=== PATIENT | male | born 2000 | race Caucasian/White ===

== ENCOUNTER 2023-03-25 05:03 | Inpatient (IN) | payer OTHER, BC ==
[2023-03-25] MEDS ORDERED: fentaNYL 50 mcg/mL 1 mL Vial ONE ×4 (05:15→17:25)
[2023-03-25] MEDS ORDERED: Morphine 4 MG/ML VIAL ONE ×2 (05:18→05:22)
[2023-03-25] MEDS ORDERED: Naloxone HCl 2 mg/2 ml Syringe ONE (05:22)
[2023-03-25 05:23] LABS: #Basophils 0.1 thou/uL (0.0-0.2); #Eosinphils 0.3 thou/uL (0.0-0.7); #Monocytes 0.9 thou/uL (0.11-0.59); #Neutrophils 8.4 thou/uL (1.40-6.50); %Basophils 0.4 % (0.0-1.0); %Eosinophils 2.1 % (0.0-10.0); %Lymphocytes 30.6 % (21.0-51.0); %Monocytes 6.6 % (0.0-10.0); %Neutrophils 59.9 % (42.0-75.0); Hemoglobin 15.2 g/dL (14.0-18.0); Mean Corpuscular HGB CONC 33.8 g/dL (32.0-36.0); Mean Corpuscular Volume 88.9 fl (78.0-98.0); Mean Platelet Volume 9.5 fL (7.4-10.4); Platelet Count 245 10x3/uL (130-400); RBC Distribution Width 12.3 % (11.5-14.5); Red Blood Cell (RBC) Count 5.06 mill/uL (4.70-6.10)
[2023-03-25 05:48] LABS: Prothrombin Time 13.7 sec (12.0-14.7)
[2023-03-25 05:49] LABS: PTT 27.1 sec (22.9-36.1)
[2023-03-25] MEDS ORDERED: Lidocaine 1% w/Epinephrine 1:100K 20 ML VIAL ONE (05:52)
[2023-03-25 05:56] LABS: ALT (SGPT) 41 U/L (8-55); AST (SGOT) 54 U/L (5-34); Albumin 4.9 g/dL (3.5-5.0); Alkaline Phosphatase 60 U/L (40-110); Anion Gap 12 mmol/L (10-20); BUN (Urea Nitrogen) 17 mg/dL (8.9-20.6); Bilirubin, Total 0.4 mg/dL (0.2-1.2); Calc. Creatinine Clearance 0 mL/min (70-130); Carbon Dioxide 26 mmol/L (22-29); Chloride 104 mmol/L (98-107); Estimated GFR 87; Globulin 2.2 g/dL (2.4-3.5); Glucose 107 mg/dL (70-105); Lipase 15 U/L (8-78); Protein, Total 7.1 g/dL (6.0-8.3); Sodium 139 mmol/L (136-145)
[2023-03-25] MEDS ORDERED: Ketamine 500 mg/500 ml in NS IVPB SCH (07:15)
[2023-03-25] MEDS ORDERED: CEFAZOLIN 2 GM in Sodium Chloride 0.9% 100 ML IVPB SCH (07:30)
[2023-03-25] MEDS ORDERED: KETAMINE 100 MG/ML (5ML VIAL) SLOW IVP SCH (07:30)
[2023-03-25] MEDS ORDERED: KETAMINE 100 MG/ML (5ML VIAL) ONE (07:32)
[2023-03-25] MEDS ORDERED: traMADol HCl 50 MG TAB PO PRN (07:43)
[2023-03-25] MEDS ORDERED: Ondansetron PF 4 MG/2 ML Vial IVP PRN (07:43)
[2023-03-25] MEDS ORDERED: Dextrose 5% in Water 1,000 ML IV PRN (07:43)
[2023-03-25] MEDS ORDERED: Dextrose 50% Abboject 50 ML SYRINGE SLOW IVP PRN ×2 (07:43→09:49)
[2023-03-25] MEDS ORDERED: Glucagon 1 MG/ML KIT IM PRN ×2 (07:43→09:49)
[2023-03-25] MEDS ORDERED: Acetaminophen 325 MG TAB PO SCH (07:45)
[2023-03-25] MEDS: Acetaminophen 500 MG TAB PO SCH ×3 (09:03→21:23)
[2023-03-25] MEDS: Sodium Chloride 0.9% 1,000 ML IV SCH ×2 (09:09→17:27)
[2023-03-25] MEDS: Ketorolac Tromethamine 30 MG/ML VIAL IVP SCH ×3 (09:09→21:20)
[2023-03-25] MEDS: Famotidine/PF 20 mg/2ml Vial SLOW IVP SCH ×2 (09:10→21:26)
[2023-03-25] MEDS ORDERED: Morphine 2 MG/ML VIAL SLOW IVP PRN (09:49)
[2023-03-25] MEDS ORDERED: hydrALAZINE 20 MG/ML VIAL SLOW IVP PRN (09:49)
[2023-03-25] MEDS ORDERED: Ipratropium/Albuterol 3 ML NEB NEB PRN (09:49)
[2023-03-25] MEDS ORDERED: Iopamidol 370 76% 100 ML VIAL ONE (10:36)
[2023-03-25 11:28] VITALS: BMI 31.0
[2023-03-25] MEDS ORDERED: TETANUS, DIPHTHERIA TOX,ADULT (TDVAX) 0.5 ML VIAL IM ONE (12:00)
[2023-03-25] MEDS: Acetaminophen 325 MG TAB PO SCH ×4 (12:04→23:41)
[2023-03-25] MEDS: traMADol HCl 50 MG TAB PO SCH ×4 (12:05→23:41)
[2023-03-25] MEDS ORDERED: CEFAZOLIN 2 GM VIAL ONE (13:06)
[2023-03-25] MEDS ORDERED: Sodium Chloride 0.9% 100 ML ONE (13:07)
[2023-03-25] MEDS ORDERED: PROPOFOL 20 ML ONE (13:18)
[2023-03-25] MEDS ORDERED: Fentanyl 250 MCG/5 ML VIAL ONE (13:18)
[2023-03-25] MEDS ORDERED: Lidocaine 1% PF 5 ML VIAL ONE ×2 (13:19→13:43)
[2023-03-25] MEDS ORDERED: Rocuronium Bromide 10 MG/ML (10ML VIAL) ONE ×2 (13:19→13:43)
[2023-03-25] MEDS ORDERED: Glycopyrrolate 0.2 MG/ML 5 ML SYRINGE ONE ×2 (13:43→15:24)
[2023-03-25] MEDS ORDERED: Dexamethasone 20 MG/5 ML VIAL ONE (13:43)
[2023-03-25] MEDS ORDERED: NEOSTIGMINE 3 MG/3 ML SYR 3 MG/3 ML SYRINGE ONE ×2 (13:43→15:24)
[2023-03-25] MEDS ORDERED: Ondansetron PF 4 MG/2 ML Vial ONE ×2 (13:43→14:43)
[2023-03-25] MEDS ORDERED: PROPOFOL 200 MG/20 ML VIAL ONE (13:43)
[2023-03-25] MEDS ORDERED: Succinylcholine 200 MG/10 ml SYRINGE FS ONE ×2 (13:43→14:15)
[2023-03-25] MEDS ORDERED: Dexamethasone 4 mg/ml Vial ONE (14:43)
[2023-03-25] MEDS ORDERED: fentaNYL PF 100 MCG/2 ML SYRINGE ONE (14:48)
[2023-03-25] MEDS ORDERED: Ondansetron HCl/PF 4 MG/2 ML Vial IVP PRN (14:55)
[2023-03-25] MEDS ORDERED: Meperidine HCl/PF 25 MG/ML VIAL SLOW IVP PRN (14:55)
[2023-03-25] MEDS ORDERED: HYDROmorphone 2 MG/ML VIAL SLOW IVP PRN (14:55)
[2023-03-25] MEDS ORDERED: Promethazine HCl 25 MG/ML VIAL IM PRN (14:55)
[2023-03-25] MEDS ORDERED: FLU VACC QS2023-24(6MOS UP)/PF 60 MCG/0.5 ML SYRINGE IM ONE (15:00)
[2023-03-25] MEDS ORDERED: hydrOXYzine 10 MG/5 ML UDCUP PO PRN (18:35)
[2023-03-25] MEDS: CEFAZOLIN 2 GM in Sodium Chloride 0.9% 100 ML IVPB SCH (21:19)
[2023-03-26] MEDS: Acetaminophen 500 MG TAB PO SCH (02:04)
[2023-03-26] MEDS: Ketorolac Tromethamine 30 MG/ML VIAL IVP SCH ×4 (02:04→19:57)
[2023-03-26] MEDS: Sodium Chloride 0.9% 1,000 ML IV SCH ×3 (02:09→23:51)
[2023-03-26] MEDS: traMADol HCl 50 MG TAB PO SCH ×4 (05:07→23:40)
[2023-03-26] MEDS: Acetaminophen 325 MG TAB PO SCH ×5 (05:07→23:40)
[2023-03-26] MEDS: CEFAZOLIN 2 GM in Sodium Chloride 0.9% 100 ML IVPB SCH (05:19)
[2023-03-26 06:26] LABS: Anion Gap 11 mmol/L (10-20); BUN (Urea Nitrogen) 9 mg/dL (8.9-20.6); Calc. Creatinine Clearance 193 mL/min (70-130); Carbon Dioxide 26 mmol/L (22-29); Chloride 106 mmol/L (98-107); Estimated GFR 128; Glucose 114 mg/dL (70-105); Potassium 3.7 mmol/L (3.5-5.1); Sodium 139 mmol/L (136-145)
[2023-03-26] MEDS: Famotidine/PF 20 mg/2ml Vial SLOW IVP SCH ×2 (08:57→19:59)
[2023-03-27] MEDS: Ketorolac Tromethamine 30 MG/ML VIAL IVP SCH ×2 (02:44→08:28)
[2023-03-27] MEDS: traMADol HCl 50 MG TAB PO SCH ×3 (05:39→17:05)
[2023-03-27] MEDS: Acetaminophen 325 MG TAB PO SCH ×3 (05:39→17:04)
[2023-03-27] MEDS: Sodium Chloride 0.9% 1,000 ML IV SCH (07:32)
[2023-03-27] MEDS: Famotidine/PF 20 mg/2ml Vial SLOW IVP SCH (08:28)
[2023-03-27] MEDS ORDERED: Polyethylene Glycol 3350 17 GM Packet PO SCH (09:00)
[2023-03-27] MEDS ORDERED: Senokot 8.6 MG TAB PO SCH (09:00)
[2023-03-27] MEDS ORDERED: Aspirin 81 mg Enteric Coated Tablet PO SCH (09:00)
[2023-03-27] MEDS: Gabapentin 300 MG CAP PO SCH ×2 (12:31→16:04)
[2023-03-27] MEDS ORDERED: Chlorhexidine Gluconate 15 ML UDCUP SSP SCH (15:15)
[2023-03-27 16:08] VITALS: BP 144/81; TEMP 97.6
== END 2023-03-27 17:42 | disposition home or self-care (01) | DRG 956 ==
LOC: ERS 05:03 → SJJU 08:29
PROVIDERS: ADMIT Surgery; ATTEND Surgery
PROC: 0QS604Z Reposition Right Upper Femur with Internal Fixation Device, Open Approach (ICD-10-PCS; principal; 2023-03-25)
DX: S72.051A Unspecified fracture of head of right femur, initial encounter for closed fracture (principal); S06.5XAA Traumatic subdural hemorrhage with loss of consciousness status unknown, initial encounter; S27.322A Contusion of lung, bilateral, initial encounter; E87.6 Hypokalemia; S01.81XA Laceration without foreign body of other part of head, initial encounter; F17.290 Nicotine dependence, other tobacco product, uncomplicated; Z82.49 Family history of ischemic heart disease and other diseases of the circulatory system; V89.2XXA Person injured in unspecified motor-vehicle accident, traffic, initial encounter
CPT/HCPCS: 36415; 36416; 70450; 70486; 71045; 71260; 72125; 72170; 74177; 80048; 80053; 83690; 85025; 85610; 85730; 86850; 86900; 86901; 94760; C1713; G0390; J1100; J1885; J2270; J2272; J2310; J2405; J2704; J3010; J3490; J7030; J7050; Q9967; S0028